=== PATIENT | female | born 1935 | race Caucasian/White ===

== ENCOUNTER → 2023-06-29 06:59 | Outpatient (REF) | payer MEDICARE, OTHER, SELFPAY ==
[2023-06-29 08:54] LABS: % Basophils 1.9 % (0-2); % Eosinophils 3.3 % (0-6); % Immature Granulocytes 0.2 % (0-0.5); % Lymphocytes 25.2 % (20.5-51.1); % Monocytes 10.8 % (1.7-9.3); % Neutrophils 58.6 % (42.2-75.2); Absolute Basophils 0.1 10^3/uL (0-0.2); Absolute Eosinophils 0.1 10^3/uL (0-0.7); Absolute Lymphocytes 1.1 10^3/uL (1.2-3.4); Absolute Monocytes 0.5 10^3/uL (0.1-0.6); Absolute Neutrophils 2.5 10^3/uL (1.4-6.5); Hematocrit 41.8 % (37.0-47.0); Mean Corp Hgb Conc. 33.5 g/dL (33.0-37.0); Mean Corpuscular Hgb 29.9 pg (27.0-31.0); Mean Corpuscular Volume 89.1 fL (81.0-99.0); Nucleated Red Blood Cells % 0 %; Platelet Count 262 10^3/uL (130-400); Red Blood Cell Count 4.69 10^6/uL (4.20-5.40); Red Cell Dist. Width 14.1 % (11.5-14.5); White Blood Cell Count 4.3 10^3/uL (4.8-10.8)
[2023-06-29 09:03] LABS: INR 2.17; PT 24.4 Sec (11.4-14.6)
[2023-06-29 09:32] LABS: ALT (SGPT) 15 U/L (0-35); AST (SGOT) 26 U/L (14-36); Albumin 4.1 g/dl (3.5-5.0); Alkaline Phosphatase 107 U/L (38-126); Blood Urea Nitrogen 15 mg/dl (7-17); Calcium 9.1 mg/dl (8.4-10.2); Carbon Dioxide 31 mmol/L (22-30); Chloride 102 mmol/L (98-107); Glucose 100 mg/dl (70-99); HDL Cholesterol 63 mg/dl; LDL Cholesterol, Calculated 157 mg/dl; Potassium 4.5 mmol/L (3.5-5.1); Sodium 135 mmol/L (135-145); Total Bilirubin 0.7 mg/dl (0.2-1.3); Total Cholesterol 248 mg/dl (50-199); Total Protein 6.9 g/dl (6.3-8.2); Triglyceride 140 mg/dl (10-149); Very Low Density Lipoprotein 28 mg/dl (0-30); eGFR > 60.00
== END ==
LOC: HWLAB 06:59
PROVIDERS: ATTENDING PHYSICIAN Internal Medicine Cardiovascular Disease; FAMILY PHYSICIAN Family Medicine; REFERRING PHYSICIAN Radiology Diagnostic Radiology
DX: E78.2 Mixed hyperlipidemia (principal); I10 Essential (primary) hypertension; I48.0 Paroxysmal atrial fibrillation; Z01.818 Encounter for other preprocedural examination
CPT/HCPCS: 36415; 71046; 80053; 80061; 85025; 85610

== ENCOUNTER 2023-07-21 13:01 | Emergency (ER) | payer MEDICARE, OTHER, SELFPAY ==
[2023-07-21 13:06] VITALS: BP 151/73
--- NOTE | 2023-07-21 13:46 | ED.GENMED ---
History of Present Illness
General
Chief Complaint: Breathing Problem
Source: patient
Exam Limitations: none
Time Seen by Provider: 07/21/23 13:40
Travel History
Have you had any contact with someone who has COVID-19?: No
Do you have any symptoms of coronavirus? Fever > 100 degrees, chills, cough, shortness of breath, sore throat, loss of taste or smell, muscle aches, or headache?: Yes
Symptoms:: cough
History of Present Illness
History of Present Illness:
See MDM
Past History
Past History
ED Past Medical History: Arrthythmia (Paroxysmal atrial fibrillation), Cancer (Uterine malignancy), CVA (Brainstem 2019), GERD, HTN, Hypercholesterolemia, Seizures, Other (Ischemic colitis, vaginal mass, diverticulitis, fibromyalgia, osteopenia,
migraine, orthostatic hypotension), Other (Left Flores's palsy, left meralgia paresthetica, prior osteomyelitis, sleep apnea) and Other (Anemia,)
ED Past Surgical History: Cardiac (Pacemaker placement), Cholecystectomy, Gynecological (Hysterectomy with total abdominal BSO) and Orthopedic (Right rotator cuff repair, right knee arthroscopy)
Social History
Tobacco: Non-smoker
Alcohol: None
Drug: None
Personal:
Living: with family
Employment: Retired
Family History
Family History: Other (Reviewed and non-contributory)
Phy Exam
Physical Exam
Physical Exam:
See MDM
Scores
Heart Failure Risk
Heart Failure Risk Score: Not Applicable
Course
Orders/Labs/Results
Orders:
Orders
07/21/23 13:46
Electrocardiogram (*1) Urgent
Reason for Study: Shortness of Breath
EKG- Treatment ONCE
07/21/23 13:57
Comprehensive Metabolic Panel Urgent
D-Dimer Urgent
07/21/23 13:58
Complete Blood Count/With Diff Urgent
NT-proBNP Urgent
Troponin I Urgent
07/21/23 15:24
CR Chest - 2 Views Urgent
Comment:
Reason For Exam: SOB, cough
07/21/23 16:50
Dexamethasone Sod Phosphate [Decadron] 10 mg IV NOW STA
07/21/23 16:55
Ipratropium/Albuterol Sulfate [Duoneb] 3 ml INH R NOW ONE
Abnormal Lab Results
07/21/23 07/21/23
13:57 13:58
Absolute Lymphs (auto) 1.0 L 10^3/uL
(1.2-3.4)
Absolute Monos (auto) 0.7 H 10^3/uL
(0.1-0.6)
Lymphocytes % 14.6 L %
(20.5-51.1)
Monocytes % 9.9 H %
(1.7-9.3)
Sodium 128 L mmol/L
(135-145)
BUN 19 H mg/dl
(7-17)
Glucose 123 H mg/dl
(70-99)
07/21/23 13:58
07/21/23 13:57
Vital Signs
Initial and Last Documented VS:
Initial Vital Signs
Temp Pulse Resp BP Pulse Ox
99.1 F 75 16 151/73 98
07/21/23 13:06 07/21/23 13:06 07/21/23 13:06 07/21/23 13:06 07/21/23 13:06
Last Documented Vital Signs
Temp Pulse Resp BP Pulse Ox
99.1 F 58 17 147/75 98
07/21/23 13:06 07/21/23 15:15 07/21/23 15:15 07/21/23 15:00 07/21/23 13:06
MDM/Problems Addressed
Differential Diagnosis Includes:
HPI and MDM Narrative:
88-year-old female presenting with shortness of breath and cough. She was diagnosed with bronchitis last week and started on antibiotics. She has 1 day left. Patient is concerned because symptoms are persisting. She complains of shortness of
breath with exertion and intermittent cough. Cough is nonproductive. Patient states the albuterol was helping early in the cough but it does not appear to be as effective.
Given her age and the pain, will obtain troponin and D-dimer. Will obtain EKG as well
Physical exam
General: Well appearing and non-toxic
HEENT: protecting airway
Neck: appears supple
CV: No evidence of cyanosis. Regular rate and rhythm
Resp: No accessory muscle use. Lungs clear
Abd: Non-distended
Extremities: No deformities. No leg edema
Neuro: alert
Psych: Normal affect
Skin: Intact
Problems Addressed including Acute and Chronic Conditions affecting care:
1. Shortness of breath
Acuity: acute
Prognosis: stable
Details: Will obtain cardiac testing EKG and D-dimer.
2. Headache
Acuity: acute
Prognosis: stable
Details: Appears to be related to cough. No focal deficits noted. Low yield for CT head
Updates
D-dimer and troponin negative. Chest x-ray clear. On reassessment, patient appears to have a bronchospastic cough. Will start steroids and discussed follow-up with PCP. We discussed her elevated blood pressure and discussed having this further
evaluated by primary care as well.
Prior to being discharged, patient felt symptomatic when she walked. After DuoNeb and Decadron, I did watch patient for a little while. Afterwards, patient feeling much better and ambulating without difficulty and states she feels comfortable
going home in the state
Differential Diagnosis (but not limited to): Pulmonary embolism, pneumonia, bronchitis, ACS
Testing considered: Chest x-ray but will obtain D-dimer first
Drug therapy (if applicable): OTC meds, please see d/c instruction regarding Rx drugs
Amount and/or Complexity of Data Reviewed
Clinical info obtained from: Patient
External data reviewed: N/A
Labs I independently reviewed (but not limited to): troponin and D-dimer negative
Radiology: X-ray independently reviewed: Chest x-ray clear
Pulse Ox: not hypoxic
EKG independently reviewed: Sinus rhythm, normal axis, no STEMI
Customer Management Specialist: N/A
Critical Care: N/A
Risk of Complication:
Social Determinants of health: Good social support
Discussed with other providers: N/A
Escalation of Care includes Admit/Obs: After being observed in the Emergency Department, pt stable for discharge.
Occasional wrong word or 'sound a like' substitutions may have occurred due to the inherent limitations of voice recognition software. Read the chart carefully and recognize, using context, where substitutions have occurred.
*Critical Care Note
Total Time (30-74mins, 75-104mins- exclusive of procedures): Not Applicable
ED Attending Note
-
Portions of this chart may have been created with voice recognition software.� Occasional wrong word or��sound alike� substitutions may have occurred due to the inherent limitations of voice recognition software.
Discharge Plan
Departure
Patient Disposition: Home (Routine Discharge)
Date of Disposition: 07/21/23
Time of Disposition: 16:52
Patient with high blood pressure during this ER visit?: Yes
Discharge Problem:
Acute bronchospasm, Benign essential HTN
Instructions: Acute Bronchitis, Adult (DC), BLOOD PRESSURE
Prescriptions:
New
albuterol sulfate [ProAir HFA] 90 mcg/actuation Hfa Aerosol Inhaler
1 puff INHALATION Q4HPRN PRN (Reason: shortness of breath) Qty: 8.5 0RF
methylprednisolone [Medrol (Don)] 4 mg tablets,dose pack
See Rx Instructions .ROUTE .COMPLEX Qty: 21 0RF
Rx Instructions:
orally per package directions
No Action
polyethylene glycol 3350 17 GRAMS powder in packet
8.5 g PO QPM
aspirin 81 MG tablet,delayed release (DR/EC)
81 mg PO Q48H
warfarin [Jantoven] 5 MG tablet
7.5 mg PO SUTUWETHSA
coenzyme Q10 [Co Q-10] 100 MG capsule
100 mg PO DAILY
Unisom (doxylamine) 25 MG tablet
25 mg PO HS
amlodipine 5 MG tablet
5 mg PO QPM Qty: 30 0RF
famotidine 20 mg Tablet
20 mg PO BID
cyanocobalamin (vitamin B-12) [Vitamin B-12] 500 mcg Tablet
500 mcg PO DAILY
warfarin 5 mg Tablet
5 mg PO MOFR
escitalopram oxalate 5 mg Tablet
2.5 mg PO QPM
gabapentin 100 mg capsule
100 mg PO HS
biotin 1,000 mcg Tablet,Chewable
1,000 mcg PO DAILY
Referrals:
Nicola Thompson DO [Family Provider] -
Activity Restrictions/Additional Instructions:
Please return for any worsening symptoms.
You may return at any time if you have further concerns.
Please follow up with your doctor at the first available appointment, preferably this week. Please discuss your symptoms and your elevated blood pressure.
Thank you for choosing [facility].
Interventions
Interventions:
*Risk Screen - Suicide Last Done: 07/21/23 13:06
*General Assessment Last Done: 07/21/23 13:06
*Neglect/Abuse Screening Last Done: 07/21/23 13:06
ED- Fall Risk Assessment Last Done: 07/21/23 14:14
ED- Cardiac Assessment Last Done: 07/21/23 14:14
ED- Pulmonary Assessment Last Done: 07/21/23 14:14
[2023-07-21 14:00] VITALS: BMI 25.0
[2023-07-21 14:07] LABS: % Immature Granulocytes 0.3 % (0-0.5); % Lymphocytes 14.6 % (20.5-51.1); % Monocytes 9.9 % (1.7-9.3); % Neutrophils 72.2 % (42.2-75.2); Absolute Basophils 0.1 10^3/uL (0-0.2); Absolute Eosinophils 0.1 10^3/uL (0-0.7); Absolute Monocytes 0.7 10^3/uL (0.1-0.6); Hematocrit 38.5 % (37.0-47.0); Hemoglobin 13.1 g/dL (12.0-16.0); Mean Corpuscular Hgb 29.2 pg (27.0-31.0); Mean Corpuscular Volume 85.9 fL (81.0-99.0); Mean Platelet Volume 9.3 fL (7.4-10.4); Nucleated Red Blood Cells % 0 %; Platelet Count 307 10^3/uL (130-400); Red Blood Cell Count 4.48 10^6/uL (4.20-5.40); Red Cell Dist. Width 13.6 % (11.5-14.5); White Blood Cell Count 6.9 10^3/uL (4.8-10.8)
[2023-07-21 14:21] VITALS: BP 157/145
[2023-07-21 14:35] LABS: NT-proBNP 334 pg/ml; Troponin I < 0.012 ng/ml
[2023-07-21 14:45] LABS: ALT (SGPT) 16 U/L (0-35); AST (SGOT) 27 U/L (14-36); Albumin 3.9 g/dl (3.5-5.0); Alkaline Phosphatase 117 U/L (38-126); Blood Urea Nitrogen 19 mg/dl (7-17); Calcium 8.7 mg/dl (8.4-10.2); Carbon Dioxide 29 mmol/L (22-30); Chloride 98 mmol/L (98-107); Estimated Creatinine Clearance 48 ml/min; Glucose 123 mg/dl (70-99); Potassium 4.4 mmol/L (3.5-5.1); Sodium 128 mmol/L (135-145); Total Bilirubin 0.5 mg/dl (0.2-1.3); Total Protein 6.7 g/dl (6.3-8.2); eGFR > 60.00
[2023-07-21 15:00] VITALS: BP 147/75
[2023-07-21 15:04] LABS: D-Dimer < 0.27 ug/mlFEU (0.00-0.50)
[2023-07-21 16:24] VITALS: BP 161/105
[2023-07-21] MEDS: DECADRON 10 MG IV (17:00)
[2023-07-21] MEDS: DUONEB 3 ML INH (17:01)
== END 2023-07-21 18:33 | disposition home or self-care (01) ==
LOC: EMR 13:01
PROVIDERS: EMERGENCY PHYSICIAN Student in an Organized Health Care Education/Training Program; FAMILY PHYSICIAN Family Medicine
DX: J98.01 Acute bronchospasm (principal); I10 Essential (primary) hypertension
CPT/HCPCS: 99285; 96374; 94640; 71046; 80053; 83880; 84484; 85025; 85379; 93005

== ENCOUNTER → 2023-08-02 12:03 | Outpatient (REF) | payer MEDICARE, OTHER, SELFPAY ==
[2023-08-02 15:39] LABS: INR 2.83; PT 29.7 Sec (11.4-14.6)
== END ==
LOC: HWLAB 12:03
PROVIDERS: ATTENDING PHYSICIAN Internal Medicine Cardiovascular Disease; FAMILY PHYSICIAN Family Medicine
DX: I48.0 Paroxysmal atrial fibrillation (principal)
CPT/HCPCS: 36415; 85610

== ENCOUNTER → 2023-08-18 09:19 | Outpatient (REF) | payer MEDICARE, OTHER, SELFPAY | LOC: HWRAD 09:19 | PROVIDERS: ATTENDING PHYSICIAN Family Medicine | DX: R06.00 Dyspnea, unspecified (principal) | CPT/HCPCS: 71250 ==

== ENCOUNTER → 2023-08-30 13:09 | Outpatient (REF) | payer MEDICARE, OTHER, SELFPAY ==
[2023-08-30 15:12] LABS: INR 2.25; PT 25.1 Sec (11.4-14.6)
== END ==
LOC: HWLAB 13:09
PROVIDERS: ATTENDING PHYSICIAN Internal Medicine Cardiovascular Disease; FAMILY PHYSICIAN Family Medicine
DX: I48.0 Paroxysmal atrial fibrillation (principal)
CPT/HCPCS: 36415; 85610

== ENCOUNTER → 2023-09-05 13:16 | Outpatient (REF) | payer MEDICARE, OTHER, SELFPAY | LOC: MRI 13:16 | PROVIDERS: ATTENDING PHYSICIAN Pain Medicine Interventional Pain Medicine; FAMILY PHYSICIAN Family Medicine | DX: M54.16 Radiculopathy, lumbar region (principal) | CPT/HCPCS: 72148 ==

== ENCOUNTER → 2023-09-27 10:37 | Outpatient (REF) | payer MEDICARE, OTHER, SELFPAY ==
[2023-09-27 12:45] LABS: INR 2.21; PT 24.4 Sec (11.4-14.6)
== END ==
LOC: HWLAB 10:37
PROVIDERS: ATTENDING PHYSICIAN Internal Medicine Cardiovascular Disease; FAMILY PHYSICIAN Family Medicine
DX: I48.0 Paroxysmal atrial fibrillation (principal)
CPT/HCPCS: 36415; 85610

== ENCOUNTER → 2023-10-05 11:07 | Outpatient (REF) | payer MEDICARE, OTHER, SELFPAY | LOC: HWRCS 11:07 | PROVIDERS: ATTENDING PHYSICIAN Nurse Practitioner Gerontology; FAMILY PHYSICIAN Family Medicine | DX: R06.02 Shortness of breath (principal); I34.0 Nonrheumatic mitral (valve) insufficiency | CPT/HCPCS: 93306 ==

== ENCOUNTER → 2023-11-04 10:20 | Outpatient (REF) | payer MEDICARE, OTHER, SELFPAY ==
[2023-11-04 12:15] LABS: INR 2.19; PT 24.2 Sec (11.4-14.6)
== END ==
LOC: HWLAB 10:20
PROVIDERS: ATTENDING PHYSICIAN Internal Medicine Cardiovascular Disease; FAMILY PHYSICIAN Family Medicine
DX: I48.0 Paroxysmal atrial fibrillation (principal)
CPT/HCPCS: 36415; 85610

== ENCOUNTER → 2023-12-06 09:06 | Outpatient (REF) | payer MEDICARE, OTHER, SELFPAY ==
[2023-12-06 11:53] LABS: INR 2.81; PT 29.5 Sec (11.4-14.6)
== END ==
LOC: HWLAB 09:06
PROVIDERS: ATTENDING PHYSICIAN Internal Medicine Cardiovascular Disease; FAMILY PHYSICIAN Family Medicine
DX: I48.0 Paroxysmal atrial fibrillation (principal)
CPT/HCPCS: 36415; 85610

== ENCOUNTER → 2024-01-10 07:51 | Outpatient (REF) | payer MEDICARE, OTHER, SELFPAY ==
[2024-01-10 09:00] LABS: % Basophils 1.8 % (0-2); % Eosinophils 2.6 % (0-6); % Immature Granulocytes 0.7 % (0-0.5); % Lymphocytes 20.8 % (20.5-51.1); % Monocytes 9.4 % (1.7-9.3); % Neutrophils 64.7 % (42.2-75.2); Absolute Basophils 0.1 10^3/uL (0-0.2); Absolute Eosinophils 0.1 10^3/uL (0-0.7); Absolute Monocytes 0.4 10^3/uL (0.1-0.6); Hematocrit 41.6 % (37.0-47.0); Hemoglobin 14.3 g/dL (12.0-16.0); Mean Corp Hgb Conc. 34.4 g/dL (33.0-37.0); Mean Corpuscular Hgb 30.1 pg (27.0-31.0); Mean Corpuscular Volume 87.6 fL (81.0-99.0); Mean Platelet Volume 9.8 fL (7.4-10.4); Nucleated Red Blood Cells % 0 %; Platelet Count 252 10^3/uL (130-400); Red Blood Cell Count 4.75 10^6/uL (4.20-5.40); Red Cell Dist. Width 13.9 % (11.5-14.5); White Blood Cell Count 4.6 10^3/uL (4.8-10.8)
[2024-01-10 09:15] LABS: INR 2.81; PT 29.5 Sec (11.4-14.6)
[2024-01-10 09:36] LABS: ALT (SGPT) 14 U/L (0-35); AST (SGOT) 27 U/L (14-36); Albumin 4.4 g/dl (3.5-5.0); Alkaline Phosphatase 103 U/L (38-126); Blood Urea Nitrogen 15 mg/dl (7-17); Calcium 9.6 mg/dl (8.4-10.2); Carbon Dioxide 29 mmol/L (22-30); Chloride 99 mmol/L (98-107); Glucose 97 mg/dl (70-99); HDL Cholesterol 61 mg/dl; LDL Cholesterol, Calculated 187 mg/dl; Potassium 4.6 mmol/L (3.5-5.1); Sodium 136 mmol/L (135-145); Total Bilirubin 0.6 mg/dl (0.2-1.3); Total Cholesterol 279 mg/dl (50-199); Triglyceride 156 mg/dl (10-149); Very Low Density Lipoprotein 31 mg/dl (0-30); eGFR > 60.00
[2024-01-10 10:04] LABS: TSH 2.16 uIU/ml (0.47-4.68)
== END ==
LOC: HWLAB 07:51
PROVIDERS: ATTENDING PHYSICIAN Internal Medicine Cardiovascular Disease; FAMILY PHYSICIAN Family Medicine; OTHER PHYSICIAN Psychiatry & Neurology Neurology; REFERRING PHYSICIAN Internal Medicine Clinical Cardiac Electrophysiology
DX: I48.0 Paroxysmal atrial fibrillation (principal); R91.1 Solitary pulmonary nodule; F33.0 Major depressive disorder, recurrent, mild; I49.5 Sick sinus syndrome; I47.10 Supraventricular tachycardia, unspecified; Z95.0 Presence of cardiac pacemaker; I69.30 Unspecified sequelae of cerebral infarction; I67.9 Cerebrovascular disease, unspecified; E78.2 Mixed hyperlipidemia; T46.6X5S Adverse effect of antihyperlipidemic and antiarteriosclerotic drugs, sequela; M79.10 Myalgia, unspecified site
CPT/HCPCS: 36415; 80053; 80061; 84443; 85025; 85610

== ENCOUNTER → 2024-02-08 11:33 | Outpatient (REF) | payer MEDICARE, OTHER, SELFPAY ==
[2024-02-08 16:17] LABS: INR 3.26; PT 33.7 Sec (11.4-14.6)
== END ==
LOC: HWLAB 11:33
PROVIDERS: ATTENDING PHYSICIAN Internal Medicine Cardiovascular Disease; FAMILY PHYSICIAN Family Medicine
DX: I48.0 Paroxysmal atrial fibrillation (principal)
CPT/HCPCS: 36415; 85610

== ENCOUNTER → 2024-02-15 11:29 | Outpatient (REF) | payer MEDICARE, OTHER, SELFPAY ==
[2024-02-15 16:20] LABS: INR 2.52; PT 27.5 Sec (11.4-14.6)
== END ==
LOC: HWLAB 11:29
PROVIDERS: ATTENDING PHYSICIAN Internal Medicine Cardiovascular Disease; FAMILY PHYSICIAN Family Medicine
DX: I48.0 Paroxysmal atrial fibrillation (principal)
CPT/HCPCS: 36415; 85610

== ENCOUNTER → 2024-04-17 10:55 | Outpatient (REF) | payer MEDICARE, OTHER, SELFPAY ==
[2024-04-17 12:55] LABS: INR 2.12; PT 23.9 Sec (11.4-14.6)
== END ==
LOC: HWLAB 10:55
PROVIDERS: ATTENDING PHYSICIAN Internal Medicine Cardiovascular Disease; FAMILY PHYSICIAN Family Medicine
DX: I48.0 Paroxysmal atrial fibrillation (principal)
CPT/HCPCS: 36415; 85610

== ENCOUNTER → 2024-05-18 10:56 | Outpatient (REF) | payer MEDICARE, OTHER, SELFPAY ==
[2024-05-18 15:50] LABS: INR 2.56; PT 27.9 Sec (11.4-14.6)
== END ==
LOC: HWLAB 10:56
PROVIDERS: ATTENDING PHYSICIAN Internal Medicine Cardiovascular Disease; FAMILY PHYSICIAN Family Medicine
DX: I48.0 Paroxysmal atrial fibrillation (principal)
CPT/HCPCS: 36415; 85610

== ENCOUNTER → 2024-06-20 11:03 | Outpatient (REF) | payer MEDICARE, OTHER, SELFPAY ==
[2024-06-20 16:28] LABS: PT 25.7 Sec (11.4-14.6)
== END ==
LOC: HWLAB 11:03
PROVIDERS: ATTENDING PHYSICIAN Internal Medicine Cardiovascular Disease; FAMILY PHYSICIAN Family Medicine
DX: I48.0 Paroxysmal atrial fibrillation (principal)
CPT/HCPCS: 36415; 85610

== ENCOUNTER → 2024-07-02 08:17 | Outpatient (REF) | payer MEDICARE, OTHER, SELFPAY ==
[2024-07-02 09:36] LABS: % Basophils 1.2 % (0-2); % Eosinophils 2.5 % (0-6); % Immature Granulocytes 0.2 % (0-0.5); % Lymphocytes 24.5 % (20.5-51.1); % Monocytes 10.8 % (1.7-9.3); % Neutrophils 60.8 % (42.2-75.2); Absolute Basophils 0.1 10^3/uL (0-0.2); Absolute Eosinophils 0.1 10^3/uL (0-0.7); Absolute Lymphocytes 1.2 10^3/uL (1.2-3.4); Absolute Monocytes 0.5 10^3/uL (0.1-0.6); Absolute Neutrophils 2.9 10^3/uL (1.4-6.5); Hemoglobin 14.2 g/dL (12.0-16.0); Mean Corpuscular Hgb 29.2 pg (27.0-31.0); Mean Corpuscular Volume 88.5 fL (81.0-99.0); Mean Platelet Volume 9.9 fL (7.4-10.4); Nucleated Red Blood Cells % 0 %; Platelet Count 257 10^3/uL (130-400); Red Blood Cell Count 4.86 10^6/uL (4.20-5.40); Red Cell Dist. Width 13.8 % (11.5-14.5); White Blood Cell Count 4.8 10^3/uL (4.8-10.8)
[2024-07-02 10:05] LABS: ALT (SGPT) 14 U/L (0-35); AST (SGOT) 28 U/L (14-36); Albumin 4.1 g/dl (3.5-5.0); Alkaline Phosphatase 98 U/L (38-126); Blood Urea Nitrogen 20 mg/dl (7-17); Calcium 9.4 mg/dl (8.4-10.2); Carbon Dioxide 32 mmol/L (22-30); Chloride 98 mmol/L (98-107); Glucose 99 mg/dl (70-99); HDL Cholesterol 61 mg/dl; LDL Cholesterol, Calculated 154 mg/dl; Potassium 4.7 mmol/L (3.5-5.1); Sodium 135 mmol/L (135-145); Total Bilirubin 0.7 mg/dl (0.2-1.3); Total Cholesterol 244 mg/dl (50-199); Total Protein 7.2 g/dl (6.3-8.2); Triglyceride 147 mg/dl (10-149); Very Low Density Lipoprotein 29 mg/dl (0-30); eGFR 54.53
[2024-07-02 10:42] LABS: TSH 2.42 uIU/ml (0.47-4.68)
== END ==
LOC: HWLAB 08:17
PROVIDERS: ATTENDING PHYSICIAN Family Medicine; OTHER PHYSICIAN Internal Medicine; REFERRING PHYSICIAN Internal Medicine Cardiovascular Disease
DX: I48.0 Paroxysmal atrial fibrillation (principal); F33.0 Major depressive disorder, recurrent, mild; Z95.0 Presence of cardiac pacemaker; I49.5 Sick sinus syndrome; I69.30 Unspecified sequelae of cerebral infarction; E78.2 Mixed hyperlipidemia; I10 Essential (primary) hypertension; I70.0 Atherosclerosis of aorta; G93.5 Compression of brain; Z79.01 Long term (current) use of anticoagulants; T46.6X5S Adverse effect of antihyperlipidemic and antiarteriosclerotic drugs, sequela; M79.10 Myalgia, unspecified site
CPT/HCPCS: 36415; 80053; 80061; 84443; 85025

== ENCOUNTER → 2024-07-05 11:55 | Outpatient (REF) | payer MEDICARE, OTHER, SELFPAY ==
[2024-07-05 17:51] LABS: Iron 91 ug/dl (37-170); Magnesium 2.1 mg/dl (1.6-2.3)
[2024-07-05 18:01] LABS: Percent Saturation 28 % (20-50); Total Iron Binding Capacity 323 ug/dl (265-497)
[2024-07-05 19:08] LABS: Folate > 20.0 ng/ml (2.76-20); Vitamin B12 399 pg/ml (239-931)
== END ==
LOC: CLAB 11:55
PROVIDERS: ATTENDING PHYSICIAN Family Medicine
DX: R42 Dizziness and giddiness (principal); R06.00 Dyspnea, unspecified; R25.2 Cramp and spasm; D64.9 Anemia, unspecified; R26.81 Unsteadiness on feet
CPT/HCPCS: 36415; 82607; 82728; 82746; 83540; 83550; 83735

== ENCOUNTER → 2024-07-25 10:19 | Outpatient (REF) | payer MEDICARE, OTHER, SELFPAY ==
[2024-07-25 13:16] LABS: INR 1.99; PT 23.1 Sec (11.4-14.6)
== END ==
LOC: HWLAB 10:19
PROVIDERS: ATTENDING PHYSICIAN Internal Medicine Cardiovascular Disease; FAMILY PHYSICIAN Family Medicine
DX: I48.0 Paroxysmal atrial fibrillation (principal)
CPT/HCPCS: 36415; 85610

== ENCOUNTER 2024-08-03 02:51 | Observation (INO) | payer MEDICARE, OTHER, SELFPAY ==
[2024-08-02 18:50] VITALS: BP 151/72
[2024-08-02 19:14] LABS: % Basophils 1.2 % (0-2); % Eosinophils 1.2 % (0-6); % Immature Granulocytes 0.5 % (0-0.5); % Lymphocytes 13.6 % (20.5-51.1); % Monocytes 8.5 % (1.7-9.3); Absolute Basophils 0.1 10^3/uL (0-0.2); Absolute Eosinophils 0.1 10^3/uL (0-0.7); Absolute Monocytes 0.7 10^3/uL (0.1-0.6); Absolute Neutrophils 5.8 10^3/uL (1.4-6.5); Hematocrit 41.4 % (37.0-47.0); Mean Corp Hgb Conc. 33.8 g/dL (33.0-37.0); Mean Corpuscular Hgb 29.9 pg (27.0-31.0); Mean Corpuscular Volume 88.5 fL (81.0-99.0); Mean Platelet Volume 9.2 fL (7.4-10.4); Nucleated Red Blood Cells % 0 %; Platelet Count 294 10^3/uL (130-400); Red Blood Cell Count 4.68 10^6/uL (4.20-5.40); Red Cell Dist. Width 14.3 % (11.5-14.5); White Blood Cell Count 7.7 10^3/uL (4.8-10.8)
[2024-08-02 19:34] LABS: ALT (SGPT) 15 U/L (0-35); AST (SGOT) 23 U/L (14-36); Albumin 4.8 g/dl (3.5-5.0); Alkaline Phosphatase 105 U/L (38-126); Blood Urea Nitrogen 20 mg/dl (7-17); Calcium 9.4 mg/dl (8.4-10.2); Carbon Dioxide 26 mmol/L (22-30); Chloride 95 mmol/L (98-107); Glucose 114 mg/dl (70-99); Potassium 4.6 mmol/L (3.5-5.1); Sodium 130 mmol/L (135-145); Total Bilirubin 0.9 mg/dl (0.2-1.3); Total Protein 7.4 g/dl (6.3-8.2); eGFR > 60.00
[2024-08-02 23:11] VITALS: BMI 23.6
[2024-08-02 23:14] VITALS: BP 160/74
[2024-08-02 23:29] LABS: COVID-19 Antigen Negative (Negative)
--- NOTE | 2024-08-02 23:48 | ED.GENMED ---
History of Present Illness
General
Chief Complaint: Numbness
Source: patient
Exam Limitations: none
Time Seen by Provider: 08/02/24 23:15
Nursing documentation reviewed up to this point in time: agreed with
History of Present Illness
History of Present Illness:
This is a pleasant 89-year-old female that presents with perioral numbness that began this AM. She states that the numbness has improved and is now on the left side of her face only. She has a history of 5 brain stem strokes, and states that this
feel similar. Patient denies fever, chills, nausea or vomiting. She denies headache. She states that this left-sided numbness is reminiscent of previous stroke. Patient denies any head trauma or falls. Patient is maintained on Coumadin but
states that her INRs have been running low. patient lives alone
Past History
Past History
ED Past Medical History: Arrthythmia (Paroxysmal atrial fibrillation), Cancer (Uterine malignancy), CVA (Brainstem 2019), GERD, HTN, Hypercholesterolemia, Seizures, Other (Ischemic colitis, vaginal mass, diverticulitis, fibromyalgia, osteopenia,
migraine, orthostatic hypotension), Other (Left Flores's palsy, left meralgia paresthetica, prior osteomyelitis, sleep apnea) and Other (Anemia,)
ED Past Surgical History: Cardiac (Pacemaker placement), Cholecystectomy, Gynecological (Hysterectomy with total abdominal BSO) and Orthopedic (Right rotator cuff repair, right knee arthroscopy)
Social History
Tobacco: Non-smoker
Alcohol: None
Drug: None
Personal:
Living: with family
Employment: Retired
Family History
Family History: Other (Reviewed and non-contributory)
Phy Exam
Physical Exam
Physical Exam:
Physical Exam
Vital signs and allergy list reviewed and agreed with.
GENERAL: Alert , in no apparent distress
EYE: pupils equal, EOMI, anicteric
NECK: Supple, no significant adenopathy. No masses. Trachea midline
ENT: Oropharynx is clear, mmm.
CARDIAC: Regular rate and rhythm . No M/R/G
LUNGS: Clear breath sounds bilaterally, no acute respiratory distress, no wheezes/rales/rhonchi
ABDOMEN: Soft, without focal tenderness, no r/g, no cvat. Normal BSx4q
NEUROLOGICAL: Alert and oriented, no focal neuro deficits
SKIN: Warm and dry, skin intact. Some paresthesia of the left side of the cheek and a V2 distribution
MUSCULOSKELETAL: No edema, well perfused. Moves all 4 extremities
PSYCH: Normal and appropriate interaction.
Scores
NIH Stroke Score
Level of Consciousness: 0 - Alert
LOC Questions: 0-Answers both correctly
LOC Commands: 0-Performs both correctly
Best Horizontal Gaze: 0-Normal
Visual Renteria: 0=Normal, no visual loss
Facial Palsy: 0=Normal, symmetrical
Motor - Right Arm: 0=No drift 10 seconds
Motor - Left Arm: 0=No drift 10 seconds
Motor - Right Le-No drift 5 seconds
Motor - Left Le-No drift 5 seconds
Limb Ataxia: 0-Absent
Sensation: 1-Mild loss
Best Language: 0-No aphasia
Dysarthria: 0-Normal
Extinction and Inattention: 0-No abnormality
Total Score:: 1
Thrombolytic Contraindication
Inclusion and Exclusion criteria reviewed: Yes
Reasons for NON-Tx with Thrombolytics ABSOLUTE Exclusions: Greater than 4.5 hrs from onset of sxs (Symptoms for at least 16 hours, if not longer)
Course
Orders/Labs/Results
Orders:
Orders
08/02/24 18:[address] [CT Head W/o Iv Contrast] Urgent
Comment:
Reason For Exam: facial numbness hx strokes
08/02/24 19:05
CMP [Comprehensive Metabolic Panel] Urgent
COVID-19 Antigen Urgent
Source: Nasal Swab
Complete Blood Count/With Diff Urgent
Influenza A+B Rapid Molecular Urgent
HEDY Source: Nasal Swab
Specimen Description:
08/02/24 23:59
Prothrombin Time Urgent
08/03/24 02:08
Warfarin [Coumadin] 7.5 mg PO NOW STA
08/03/24 02:14
Aspirin Chewable [Low Strength Aspirin] 162 mg PO NOW STA
08/03/24 02:15
Admit/Transfer Patient As Directed
Co-Sign Provider:
Level of Care: Observation services
Assign to:: Telemetry
Physician / Group: hospitalist
Diagnosis: TIA
Reason for Telemetry: CVA/TIA
Date to Stop Telemetry: 08/06/24
Time to Stop Telemetry: 11:00
PRN Pain Medication Management As Directed
May give lesser potent ordered pain med per pt: Yes
preference::
Protocol:: Medication orders for pain may be administered in a
manner that supports deferring to patient preference
when the pt is:
- Requesting an ordered lesser potent pain medication.
Least to most potent pain medications are defined
as: acetaminophen < NSAID < tramadol < opioids
(morphine, oxycodone, hydromorphone).
- Requesting a lesser dose of the same medication IF
ORDERED.
- Requesting a less intrusive route of administration
if both routes are prescribed by the provider (PO <
IV).
08/03/24 02:18
Code Status As Directed
Resuscitation Status: Full Code
08/03/24 03:00
Flush (0.9% Sodium Chloride) [Flush (Nss)] See Dose Instructions IV PER PROTOCOL
08/03/24 03:14
Acetaminophen [Tylenol/Feverall] 650 mg RECTAL Q4HPRN PRN
Acetaminophen [Tylenol] 650 mg PO Q4HPRN PRN
Albuterol [ProAIR HFA INHALER] 1 puff INH R Q4HPRN PRN
08/03/24 03:14
Case Management Consult ONCE
Case Management Consult: Discharge Planning
Comment: stroke/tia
DIETARY CONSULT Routine
Reason for Consult: stroke/TIA
NEUROLOGY CONSULT Urgent
Consulting Provider: Poli Singh
Was physician already notified: Yes
Baked Goods Stock Clerk Urgent
MR Brain Without Contrast Routine
Comment:
Reason For Exam: stroke/TIA
Recent pill cam endoscopy?: No
Pacemaker/Defibrillator?: Yes
Is the pacemaker a conditional type?: Yes
Activity As Directed
Activity Level: With Assistance
NIH Stroke Scale As Directed
Directions: Per protocol
Comment: every shift and with any change in condition or mental status
Neurological Checks As Directed
Frequency: q4h
Additional Instructions:: q4h x 24h upon admission to the floor, then qshift & with any change in condition
and mental status
Patient Education As Directed
Type: Stroke education packet
Comment: provide to patient and family
Pneumatic Compression Sleeves As Directed
Type: Knee high
Vital Signs As Directed
Frequency: Per unit guidelines
Ot Eval And Treat Routine
Pt Eval And Treat Routine
Activity Level: With Assistance
Speech Therapy Eval & Treat Routine
DX Deep Vein Thrombosis Video Routine
08/03/24 Breakfast
Cholesterol Lowering
At Your Request: Limited Participation
08/03/24 06:36
Cardiovascular Evaluation IN AM
Complete Blood Count/No Diff IN AM
Prothrombin Time IN AM
08/03/24 08:00
Famotidine [Pepcid] 20 mg PO DAILY
08/03/24 18:00
Amlodipine [Norvasc] 5 mg PO QPM
Escitalopram Oxalate [Lexapro] 2.5 mg PO QPM
Polyethylene Glycol Powder [Miralax] 8.5 grams PO QPM
Warfarin [Coumadin] 5 mg PO MOFR
08/03/24 22:00
Gabapentin [Neurontin] 100 mg PO HS
doxylamine succinate [Unisom (doxylamine)] See Dose Instructions PO HS
08/04/24 08:00
Aspirin Low Dose EC [Aspir Low (Enteric Coated)] 81 mg PO Q48H
08/04/24 18:00
Warfarin [Coumadin] 7.5 mg PO SUTUWETHSA
08/06/24 11:00
DC Protocol for Telemetry ONCE
Abnormal Lab Results
08/02/24 08/02/24
19:05 23:59
Absolute Lymphs (auto) 1.0 L 10^3/uL
(1.2-3.4)
Absolute Monos (auto) 0.7 H 10^3/uL
(0.1-0.6)
Lymphocytes % 13.6 L %
(20.5-51.1)
PT 20.2 H Sec
(11.4-14.6)
Sodium 130 L mmol/L
(135-145)
Chloride 95 L mmol/L
(98-107)
BUN 20 H mg/dl
(7-17)
Glucose 114 H mg/dl
(70-99)
08/02/24 19:05
08/02/24 19:05
Vital Signs
Initial and Last Documented VS:
Initial Vital Signs
Temp Pulse Resp BP Pulse Ox
97.8 F 70 18 151/72 95
08/02/24 18:50 08/02/24 18:50 08/02/24 18:50 08/02/24 18:50 08/02/24 18:50
Last Documented Vital Signs
Temp Pulse Resp BP Pulse Ox
99.0 F 69 15 133/69 95
08/02/24 23:14 08/03/24 06:45 08/02/24 23:14 08/03/24 06:00 08/03/24 06:45
*Pulse Oximetry
Patient hypoxic: no
*EKG
Interpreted by ED Provider?: NA
*Critical Care Note
Total Time (30-74mins, 75-104mins- exclusive of procedures): Not Applicable
Update Note
Update Note:
Nazlini texted neurology with CT scan results
Awaiting coags-INR is 1.68
Given that patient is stating that her symptoms are similar to previous brainstem strokes, patient to be brought in for continued observation and testing.
Hospitalist aware and agrees to admit patient to the hospitalist service.,
ED Attending Note
-
Portions of this chart may have been created with voice recognition software.� Occasional wrong word or��sound alike� substitutions may have occurred due to the inherent limitations of voice recognition software.
Discharge Plan
Departure
Patient Disposition: Admit
Date of Disposition: 08/03/24
Time of Disposition: 01:22
Presentation/result/management discussed w/ accepting MD/DO: Hospitalist
Condition: Fair
Discharge Problem:
Paresthesias, History of ischemic vertebrobasilar artery brainstem stroke
Interventions
Interventions:
*Risk Screen - Suicide Last Done: 08/02/24 18:50
*General Assessment Last Done: 08/02/24 23:16
*Neglect/Abuse Screening Last Done: 08/02/24 23:16
*ED- Fall Risk Assessment Last Done: 08/02/24 23:15
*ED COVID-19 Vaccine History Last Done: 08/02/24 23:15
ED- Neurological Assessment Last Done: 08/02/24 23:17
[2024-08-03] VITALS (13 sets, daily range): BP systolic 123–170; BP diastolic 50–108
[2024-08-03 00:23] LABS: INR 1.67; PT 20.2 Sec (11.4-14.6)
--- NOTE | 2024-08-03 02:04 | HPS.HSE ---
Family Physician
-
Family Physician: Nicola Thompson
Chief Complaint
-
Facial paresthesias
History of Present Illness
Patient is a 89-year-old with past medical history of brainstem CVA, TIA, proximal atrial fibrillation on anticoagulation with Coumadin, hypertension and hyperlipidemia who presents to the emergency department with approximately 12 hours of facial
paresthesias.
Patient reports she was in usual state of health when she suddenly felt numbness around her lips and itching bilaterally. Then the numbness appeared to move today left facial area including the cheeks and the lower chin. It also involves some of
the neck. Over time in the region affected as dwindled down to just do left cheek and jaw. She denies any new facial asymmetry (she reports having a chronic mild left-sided facial asymmetry). She denies any dysarthria or dysphagia. She denies
any weakness or numbness in lower extremities. She denies any recent palpitations. She denies feeling dizzy or lightheaded. She denies any headache. She reports taking aspirin every other day as prescribed. She is also on Coumadin which she
reports taking as prescribed. She reports about a 1 week history of intermittent night sweats without fever and a nonproductive cough.
On arrival in the emergency department she was afebrile and hemodynamically stable with a BP of 167/75, pulse of 84 and satting 97% on room air. CBC was unremarkable. Electrolytes were notable for sodium of 130 but otherwise unremarkable with
normal BUN and creatinine. CT of the head shows no acute abnormalities.
Medical History
Past Medical History
Past Medical History: Reports Other (see below)
Additional Past Medical History:
CVA, GERD, HTN, Hypercholesterolemia, Seizures and Other (Ischemic colitis, vaginal mass, diverticulitis)
Past Surgical History: Reports Other (see below)
Additional Past Surgical History:
Cardiac, Cholecystectomy and Gynecological
Social History
Tobacco: Non-smoker
Alcohol: None
Drug: None
Personal:
Living: With Family
Employment: Retired
Family History
Family History: Not pertinent
Allergies / Home Medications
Allergies reflects when Allergies were last updated in [employer].
Home Medications with original date entered in [employer]
Allergy/Medication List:
Allergies
Allergy/AdvReac Type Severity Reaction Status Date / Time
cyclobenzaprine Allergy muscle Verified 08/03/24 00:59
aches
cyclobenzaprine HCl Allergy muscle Verified 08/03/24 00:59
[From Flexeril] aches
dextromethorphan Allergy SEIZURE Verified 08/03/24 00:59
dextromethorphan HBr Allergy SEIZURES Verified 08/03/24 00:59
[From NyQuil]
doxylamine [From NyQuil] Allergy SEIZURES Verified 08/03/24 00:59
guaifenesin Allergy Unknown Verified 08/03/24 00:59
monosodium glutamate Allergy Unknown Verified 08/03/24 00:59
morphine [Morphine] Allergy vomiting Verified 08/03/24 00:59
prochlorperazine Allergy hallucinati Verified 08/03/24 00:59
[From Compazine] ons
pseudoephedrine HCl Allergy SEIZURES Verified 08/03/24 00:59
[From NyQuil]
Enbdpex-NMG-CvT Reductase Allergy muscle Verified 08/03/24 00:59
Inhibitor aches
[Qgrifmd-Zhu-Fzt Reductase
Inhibitor]
Home Medications
polyethylene glycol 3350 17 gram oral powder packet 8.5 g PO QPM 06/11/15
aspirin 81 mg tablet,delayed release 81 mg PO Q48H 08/01/17
warfarin 5 mg tablet (Jantoven) 7.5 mg PO SUTUWETHSA 08/01/17
coenzyme Q10 100 mg capsule (Co Q-10) 100 mg PO DAILY 07/04/18
doxylamine succinate 25 mg tablet (Unisom (doxylamine)) 25 mg PO HS 07/04/18
amlodipine 5 mg tablet 5 mg PO QPM ##30 07/06/18
escitalopram oxalate 5 mg tablet 2.5 mg PO QPM 03/05/22
famotidine 20 mg tablet 20 mg PO BID 03/05/22
warfarin 5 mg tablet 5 mg PO MOFR 03/05/22
albuterol sulfate 90 mcg/actuation aerosol inhaler (ProAir HFA) 1 puff inhalation Q4HPRN PRN shortness of breath #8.5 grams 07/21/23
gabapentin 100 mg capsule 100 mg PO HS 07/21/23
Review of Systems
-
History Source: Patient
Constitutional: Reports Night Sweats; Denies Fever or Chills
EENT: Reports No Symptoms
Respiratory: Reports Cough; Denies Trouble Breathing
Cardiac: Reports No Symptoms
Abdomen/GI: Reports No Symptoms
: Denies Dysuria or Flank Pain
Musculoskeletal: Reports No Symptoms
Skin: Reports No Symptoms
Neurological: Reports No Symptoms
Endocrine: Reports No Symptoms
Hematologic/Lymphatic: Reports No Symptoms
Psych: Reports No Symptoms
Physical Exam
Vital Signs
Vital Signs
Temp Pulse Resp BP Pulse Ox
99.0 F 64 15 167/73 97
08/02/24 23:14 08/03/24 01:00 08/02/24 23:14 08/03/24 01:00 08/03/24 01:00
Physical Exam
General: Well Developed, Well Nourished, No Apparent Distress and Comfortable
HEENT: NormoCephalic, Anicteric, Moist mucous membranes and Atraumatic
Respiratory: Clear
Cardiac: S1/S2 and Regular Rhythm
Breast: Deferred by me
GI: Soft, Non Tender, Non Distended and Normal Bowel Sounds
Rectal: Deferred by Provider
Genito-urinary: No costovertebral tender
Musculoskeletal: No Clubbing, No Cyanosis and No Edema
Skin: Warm
Neuro: AO x 3, No Motor Deficits, Cranial Nerves Intact and Other (slight decrease in light touch sensation over the V3 region on the left face. Preserved hot/cold and pin-prick.)
Hematologic/Lymphatic: No Lymphadenopathy
Psych: Calm
Laboratory Results
-
08/02/24 19:05
08/02/24 19:05
Laboratory Results
PT 20.2 Sec (11.4-14.6) H 08/02/24 23:59
INR 1.67 08/02/24 23:59
Total Bilirubin 0.9 mg/dl (0.2-1.3) 08/02/24 19:05
AST 23 U/L (14-36) 08/02/24 19:05
ALT 15 U/L (0-35) 08/02/24 19:05
Alkaline Phosphatase 105 U/L (38-126) 08/02/24 19:05
Data Reviewed
-
CT Scan: Report Reviewed by me
Lab Data: Labs Reviewed by me
Old Records: Reviewed
Impression/Plan
-
IMPRESSION:
89 y.o with history of CVA and TIA, pAFIB on AC, HTN presents with 12 hours of left facial numbness that has improved since onset. Initial onset was a genesis-oral numbness that then appeared to move to the left facial region. She says reminiscent of
her last brain stem stroke. CT head is negative. She still has symptoms with NIHSS = 1.
PLAN:
CVA/TIA - Patient with multiple TIAs and CVA. NIHSS = 1. Subtherapeutic INR.
- admit to telemetry observation
- continue QOD aspirin and AC, will give aspirin 81 now
- neurochecks q 6
- passed swallowing eval so allow oral medications and po for now
- mri in am (ok with ppm)
- pt/ot
- neurology consult
AFIB
- conutinue coumadin
- sick sinus s/p ppm, no rate control agent
DVT PPX - on coumadin, scds
Code status - Full Code, previously DNR and listed as DNR on POA but changed mind to full currently.
[2024-08-03] MEDS: COUMADIN 7.5 MG PO (03:36)
[2024-08-03] MEDS: LOW STRENGTH ASPIRIN 162 MG PO (03:37)
[2024-08-03 06:46] LABS: Hematocrit 36.4 % (37.0-47.0); Hemoglobin 12.8 g/dL (12.0-16.0); Mean Corp Hgb Conc. 35.2 g/dL (33.0-37.0); Mean Corpuscular Hgb 30.4 pg (27.0-31.0); Mean Corpuscular Volume 86.5 fL (81.0-99.0); Mean Platelet Volume 9.4 fL (7.4-10.4); Platelet Count 241 10^3/uL (130-400); Red Blood Cell Count 4.21 10^6/uL (4.20-5.40); Red Cell Dist. Width 13.9 % (11.5-14.5); White Blood Cell Count 6.6 10^3/uL (4.8-10.8)
[2024-08-03 07:04] LABS: INR 1.66; PT 20.1 Sec (11.4-14.6)
[2024-08-03 07:14] LABS: HDL Cholesterol 48 mg/dl; LDL Cholesterol, Calculated 118 mg/dl; Total Cholesterol 178 mg/dl (50-199); Triglyceride 61 mg/dl (10-149); Very Low Density Lipoprotein 12 mg/dl (0-30)
[2024-08-03] MEDS: PEPCID 20 MG PO (07:24)
[2024-08-03] MEDS: TYLENOL 650 MG PO (09:54)
--- NOTE | 2024-08-03 10:36 | PTOTSP ---
SPEECH THERAPY SWALLOW AND SPEECH/LANGUAGE/COGNITIVE COMMUNICATION EVALUATION:
Patient exhibits grossly functional oropharyngeal swallow at this time. Patient with history of VSE x2 most recently 02/24/2023 which indicated grossly functional oropharyngeal swallow at that time, along with recommendation for GI consult given
concern for possible esophageal dysphagia given contrast retention and incomplete esophageal clearance during esophageal sweep. Patient reporting current swallow function appears to be unchanged from baseline. Patient remains at risk for aspiration
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 Recommend continue Regular texture solids, thin liquids. Medications whole with liquid as best tolerated. General aspiration and Reflux precautions. ST to
follow, assess diet tolerance and modify as appropriate, determine indication for repeat instrumental assessment of swallowing as appropriate, and provide continued education regarding aspiration precautions.
Patient exhibits mild cognitive communication impairments characterized by deficits in STM, higher level executive functioning skills, Attention, and Abstraction. MOCA version 8.1 was administered. Patient achieved a score of 24/30, indicating
slightly below normal level (greater than or equal to 26/30). Subscores as follows: Visuospatial/Executive functionin/5. Namin/3. Attention: 5/6. Language: 2/3. Abstraction: 1/2. Delayed Recall: /5. Orientation: 6/6. Patient reported
cognitive communication skills appear near baseline level at this time. MRI pending at this time. Will follow for ST services pending MRI results.
RECOMMEND:
1) Regular texture solids, thin liquids
2) Medications whole with liquid as best tolerated
3) General aspiration and Reflux precautions: Upright positioning; Small sips/bites; Slow rate; Chew thoroughly; Alternate liquids/solids; Remain upright 30 minutes after eating/drinking
4) Oral care 3x/day and increased mobility as able/tolerated to reduce risk for nosocomial infection
5) ST to follow for swallow therapy to assess diet tolerance and determine indication for VSE as appropriate
6) ST to follow for cognitive communication therapy pending MRI results
[2024-08-03 11:04] LABS: Blood Urea Nitrogen 12 mg/dl (7-17); Calcium 9.2 mg/dl (8.4-10.2); Carbon Dioxide 27 mmol/L (22-30); Chloride 96 mmol/L (98-107); Estimated Creatinine Clearance 55 ml/min; Glucose 168 mg/dl (70-99); Sodium 130 mmol/L (135-145); eGFR > 60.00
--- NOTE | 2024-08-03 11:23 | W.PN.UPDATE ---
Update Note
Progress Note Update
Non-billable addendum
admitted 2 AM for concern of TIA/CVA given symptoms of facial paraesthesias x 12 hours
Assessment:
CVA vs TIA
- hx of multiple TIA and CVA (brainstem 2019)
- CT head: 1. SEVERE WHITE MATTER LEUKOARAIOSIS in the frontal and parietal lobes.
- MRI brain pending
- continue ASA
- continue Coumadin - noted subtherapeutic - consider uptitration pending MRI result
- neuro-checks
- PT/OT/ST
- Neuro consulted
Parox A. Fib
- continue Toprol XL
- continue Coumadin - noted subtherapeutic - consider uptitration pending MRI result
GERD
- H2 dontae
Essential HTN
- continue Norvasc 5mg
HLD
[place]
Hx of uterine cancer
DVT ppx: Coumadin
Code: Full
--- NOTE | 2024-08-03 15:14 | W.DS.TRANS ---
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
-
Discharge Instructions:
Discharge Diagnosis/Procedures TIA vs infrequent mild partial seizure, sub
therapeutic INR
Diet Low Cholesterol
Activity As tolerated
Blood Work call Cardiology office on Tuesday for INR check
Instructions:
Stand-Alone Forms:
Changes to Home Medications: No
Discharge Medications:
DC Medications w/original date entered in [facility]
polyethylene glycol 3350 17 gram oral powder packet 8.5 g PO QPM 06/11/15
aspirin 81 mg tablet,delayed release 81 mg PO Q48H 08/01/17
coenzyme Q10 100 mg capsule (Co Q-10) 100 mg PO DAILY 07/04/18
doxylamine succinate 25 mg tablet (Unisom (doxylamine)) 25 mg PO HS 07/04/18
amlodipine 5 mg tablet 5 mg PO QPM ##30 07/06/18
escitalopram oxalate 5 mg tablet 5 mg PO QPM 03/05/22
famotidine 20 mg tablet 20 mg PO BID 03/05/22
gabapentin 100 mg capsule 100 mg PO HS 07/21/23
acetaminophen 325 mg tablet (Tylenol) 650 mg PO Q6HPRN PRN mild pain 08/03/24
albuterol sulfate 90 mcg/actuation aerosol inhaler 2 puff inhalation R Q6HPRN PRN sob 08/03/24
guar gum 0.5 tbsp PO QPM 08/03/24
metoprolol succinate 50 mg tablet,extended release 24 hr (Toprol XL) 50 mg PO QPM 08/03/24
uuuxkckp-ougsjpwa-gexf 8 mg-folic ac 400 mcg-vit K 10 mcg chew tablet (Centrum Chewables) 1 tab PO DAILY 08/03/24
warfarin 5 mg tablet (Jantoven) 7.5 mg (1.5 x 5 mg) PO DAILY #45 tabs 08/03/24
Home Medication Changes
Pending Results: No
Total time spent discharging patient (in min): 41
--- NOTE | 2024-08-03 15:29 | CM ---
CM reviewed medical records. CM met with patient. Patient is medically cleared for discharge to home. Patient is otherwise independent with needs. CM offered home care and patient is agreeable.
PLAN: home with VN
--- NOTE | 2024-08-03 19:45 | EEG.RPT ---
Electroencephalogram Report
Recording
Date of EE08/03/24
Type of EEG: Routine
Length of EEG recordin mins
Done with Video Recording: Yes
Patient Status: Inpatient
Recording Conditions: Awake
Hyperventilation Performed: No
Photic Stimulation Performed: Yes
Report
Clinical Background:�simple partial seizure
Introduction: A routine bedside EEG was done using International 10-20 electrode placement protocol.
Background: In the most alert state, the PDR is 10 Hz in frequency with normal amplitude. There is spontaneous variability and reactivity.�
Sleep: No sleep is seen.�
Focal/epileptiform: There were no focal or epileptiform discharges. No clinical or electrographic seizures occurred during this recording.
Photic stimulation: resulted in normal driving response. There was no photo myogenic or photoparoxysmal response.�
Impression: Normal EEG
--- NOTE | 2024-08-03 19:48 | CON.NEURO ---
Neuro Assessment/Plan
Assessment
simple partial seizure.
this pattern, of essentially the same event every 1-2 years for 10 years is not consistent with TIA
EEG was normal
MRI couldn't be done, the medtronic tech attempted but was unable to turn off her pacemaker
Plan
patient comfortable to go home with no rx
I advised her my suspected diagnosis of simple partial seizure, this is probably not the last time that she has this event, the more times it happens this way the less concerned that I am;
the next time that this occur I advise no further workup
Consultation
Order
Date of Consultation: 08/03/24
Requesting Provider: Yousuf Valerio
Reason for Consult: TIA
Subjective/Objective
Subjective Data
Date of Service: August 03, 2024
She is an 89 year old woman presenting with facial numbness. began lower lip, spread to whole face, and now on the left side of her face.
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
advanced and progressing
this event continues to happen every 1-2 years. on some of the prior episodes, the tingling spread down her left arm.
Objective Data
Vital Signs
Temp Pulse Resp BP Pulse Ox
37.2 C 90 15 137/108 96
08/02/24 23:14 08/03/24 15:41 08/02/24 23:14 08/03/24 15:41 08/03/24 15:41
Lab Results
08/03/24 06:36
08/03/24 10:35
PT 20.1 Sec (11.4-14.6) H 08/03/24 06:36
INR 1.66 08/03/24 06:36
Sodium 130 mmol/L (135-145) L 08/03/24 10:35
Potassium 4.0 mmol/L (3.5-5.1) 08/03/24 10:35
BUN 12 mg/dl (7-17) 08/03/24 10:35
Glucose 168 mg/dl (70-99) H 08/03/24 10:35
Calcium 9.2 mg/dl (8.4-10.2) 08/03/24 10:35
LDL Cholesterol, Calc 118 mg/dl 08/03/24 06:36
Patient Allergies
cyclobenzaprine Allergy (Verified 08/03/24 00:59)
muscle aches
cyclobenzaprine HCl [From Flexeril] Allergy (Verified 08/03/24 00:59)
muscle aches
dextromethorphan Allergy (Verified 08/03/24 00:59)
SEIZURE
dextromethorphan HBr [From NyQuil] Allergy (Verified 08/03/24 00:59)
SEIZURES
doxylamine [From NyQuil] Allergy (Verified 08/03/24 00:59)
SEIZURES
guaifenesin Allergy (Verified 08/03/24 00:59)
Unknown
monosodium glutamate Allergy (Verified 08/03/24 00:59)
Unknown
morphine [Morphine] Allergy (Verified 08/03/24 00:59)
vomiting
prochlorperazine [From Compazine] Allergy (Verified 08/03/24 00:59)
hallucinations
pseudoephedrine HCl [From NyQuil] Allergy (Verified 08/03/24 00:59)
SEIZURES
Oashmou-HYD-KlJ Reductase Inhibitor [Thjfynt-Efw-Sbz Reductase Inhibitor] Allergy (Verified 08/03/24 00:59)
muscle aches
Physical Exam
-
AAOx3, speech clear, language intact
VFF, EOMI, face symmetric
grossly full strength
sensation intact to touch/temp
Medications
-
Active Medications
Generic Name Dose Route Start Last Admin
Trade Name Freq PRN Reason Stop Dose Admin
Acetaminophen 650 mg 08/03/24 03:14
Acetaminophen 650 Mg Rectal Suppository RECTAL 08/31/24 03:13
Q4HPRN PRN
STILL, mild pain, or temp >100.4F
Acetaminophen 650 mg 08/03/24 03:14 08/03/24 09:54
Acetaminophen 325 Mg Tablet PO 08/31/24 03:13 650 mg
Q4HPRN PRN Administration
STILL, mild pain, or temp >100.4F
Albuterol 1 puff 08/03/24 03:14
Albuterol Hfa [90 Mcg/Dose] Inhaler INH
R Q4HPRN PRN
shortness of breath
Protocol
Amlodipine Besylate 5 mg 08/03/24 18:00
Amlodipine 5 Mg Tablet PO 08/31/24 17:59
QPM LUCIO
Aspirin 81 mg 08/04/24 08:00
Aspirin 81 Mg (Enteric Coated) Tablet PO 09/01/24 07:59
Q48H LUCIO
Escitalopram Oxalate 2.5 mg 08/03/24 18:00
Escitalopram 5 Mg Tablet PO 08/31/24 17:59
QPM LUCIO
Famotidine 20 mg 08/03/24 08:00 08/03/24 07:24
Famotidine 20 Mg Tablet PO 08/31/24 07:59 20 mg
DAILY LUCIO Administration
Gabapentin 100 mg 08/03/24 22:00
Gabapentin 100 Mg Capsule PO 08/31/24 21:59
HS LUCIO
Metoprolol Succinate 50 mg 08/03/24 18:00
Metoprolol 50 Mg Extended Release Tablet PO 08/31/24 17:59
QPM LUCIO
Doxylamine Succinate 0 mg 08/03/24 22:00
[Unisom (Doxylamine PO 08/31/24 21:59
)] 25 Mg Tablet Po HS LUCIO
Hs
Polyethylene Glycol 8.5 grams 08/03/24 18:00
Polyethylene Glycol Powder 17 Grams Packet PO 08/31/24 17:59
QPM LUCIO
Sodium Chloride 0 flush 08/03/24 03:00
Sodium Chloride 0.9% (Flush) Syringe IV 08/31/24 02:59
PER PROTOCOL LUCIO
Warfarin Sodium 7.5 mg 08/03/24 18:00
Warfarin 7.5 Mg Tablet PO 08/08/24 17:59
QPM LUCIO
Home Medications
�Medication �Instructions �Recorded
polyethylene glycol 3350 17 gram 8.5 g PO QPM 06/11/15
oral powder packet
aspirin 81 mg tablet,delayed 81 mg PO Q48H 08/01/17
release
coenzyme Q10 100 mg capsule (Co 100 mg PO DAILY 07/04/18
Q-10)
doxylamine succinate 25 mg tablet 25 mg PO HS 07/04/18
(Unisom (doxylamine))
amlodipine 5 mg tablet 5 mg PO QPM ##30 07/06/18
escitalopram oxalate 5 mg tablet 5 mg PO QPM 03/05/22
famotidine 20 mg tablet 20 mg PO BID 03/05/22
gabapentin 100 mg capsule 100 mg PO HS 07/21/23
acetaminophen 325 mg tablet 650 mg PO Q6HPRN PRN mild pain 08/03/24
(Tylenol)
albuterol sulfate 90 mcg/actuation 2 puff inhalation R Q6HPRN PRN sob 08/03/24
aerosol inhaler
guar gum 0.5 tbsp PO QPM 08/03/24
metoprolol succinate 50 mg 50 mg PO QPM 08/03/24
tablet,extended release 24 hr
(Toprol XL)
mvphpunr-hyquvaqx-vqhs 8 mg-folic 1 tab PO DAILY 08/03/24
ac 400 mcg-vit K 10 mcg chew
tablet (Centrum Chewables)
warfarin 5 mg tablet (Jantoven) 7.5 mg (1.5 x 5 mg) PO DAILY #45 08/03/24
tabs
== END 2024-08-03 16:30 | disposition home health service (06) ==
LOC: ED 02:51
PROVIDERS: Emergency Medicine; ADMITTING PHYSICIAN Internal Medicine; ATTENDING PHYSICIAN Internal Medicine; CONSULT PHYSICIAN Psychiatry & Neurology Clinical Neurophysiology; EMERGENCY PHYSICIAN Student in an Organized Health Care Education/Training Program; FAMILY PHYSICIAN Family Medicine
DX: G45.9 Transient cerebral ischemic attack, unspecified (principal); R20.0 Anesthesia of skin; I48.0 Paroxysmal atrial fibrillation; E78.00 Pure hypercholesterolemia, unspecified; M79.7 Fibromyalgia; G93.5 Compression of brain; I67.81 Acute cerebrovascular insufficiency; R56.9 Unspecified convulsions; R29.810 Facial weakness; I10 Essential (primary) hypertension; G47.33 Obstructive sleep apnea (adult) (pediatric); M85.80 Other specified disorders of bone density and structure, unspecified site; K21.9 Gastro-esophageal reflux disease without esophagitis; Z85.42 Personal history of malignant neoplasm of other parts of uterus; Z90.49 Acquired absence of other specified parts of digestive tract; Z95.0 Presence of cardiac pacemaker; Z90.722 Acquired absence of ovaries, bilateral; Z90.710 Acquired absence of both cervix and uterus; Z86.73 Personal history of transient ischemic attack (TIA), and cerebral infarction without residual deficits; Z79.01 Long term (current) use of anticoagulants; Z60.2 Problems related to living alone; Z88.5 Allergy status to narcotic agent; Z88.8 Allergy status to other drugs, medicaments and biological substances; Z91.02 Food additives allergy status; Z79.82 Long term (current) use of aspirin; Z11.52 Encounter for screening for COVID-19
CPT/HCPCS: 70450; 80048; 80053; 80061; 85025; 85027; 85610; 87502; 87811; 92523; 92610; 95816; 99285; G0378

== ENCOUNTER → 2024-08-20 11:43 | Outpatient (REF) | payer MEDICARE, OTHER, SELFPAY ==
[2024-08-20 15:31] LABS: INR 2.05; PT 23.2 Sec (11.4-14.6)
== END ==
LOC: HWLAB 11:43
PROVIDERS: ATTENDING PHYSICIAN Internal Medicine Cardiovascular Disease; FAMILY PHYSICIAN Family Medicine
DX: I48.0 Paroxysmal atrial fibrillation (principal)
CPT/HCPCS: 36415; 85610

== ENCOUNTER → 2024-09-06 10:39 | Outpatient (REF) | payer MEDICARE, OTHER, SELFPAY ==
[2024-09-06 17:04] LABS: INR 2.02; PT 23.4 Sec (11.4-14.6)
[2024-09-06 17:07] LABS: Sodium 135 mmol/L (135-145)
== END ==
LOC: HWLAB 10:39
PROVIDERS: ATTENDING PHYSICIAN Internal Medicine Cardiovascular Disease; FAMILY PHYSICIAN Family Medicine
DX: I48.0 Paroxysmal atrial fibrillation (principal); R79.9 Abnormal finding of blood chemistry, unspecified
CPT/HCPCS: 36415; 84295; 85610

== ENCOUNTER → 2024-09-18 10:43 | Outpatient (REF) | payer MEDICARE, OTHER, SELFPAY ==
[2024-09-18 12:38] LABS: INR 1.98; PT 22.6 Sec (11.4-14.6)
== END ==
LOC: HWLAB 10:43
PROVIDERS: ATTENDING PHYSICIAN Internal Medicine Cardiovascular Disease; FAMILY PHYSICIAN Family Medicine
DX: I48.0 Paroxysmal atrial fibrillation (principal)
CPT/HCPCS: 36415; 85610

== ENCOUNTER → 2024-09-24 07:54 | Outpatient (REF) | payer MEDICARE, OTHER, SELFPAY ==
[2024-09-24 10:13] LABS: % Basophils 1.6 % (0-2); % Eosinophils 3.2 % (0-6); % Immature Granulocytes 1.1 % (0-0.5); % Lymphocytes 19.8 % (20.5-51.1); % Monocytes 9.9 % (1.7-9.3); % Neutrophils 64.4 % (42.2-75.2); Absolute Basophils 0.1 10^3/uL (0-0.2); Absolute Eosinophils 0.1 10^3/uL (0-0.7); Absolute Immature Granulocytes 0.1 10^3/uL (0-0.05); Absolute Lymphocytes 0.9 10^3/uL (1.2-3.4); Absolute Monocytes 0.4 10^3/uL (0.1-0.6); Absolute Neutrophils 2.9 10^3/uL (1.4-6.5); Hematocrit 41.5 % (37.0-47.0); Mean Corp Hgb Conc. 33.7 g/dL (33.0-37.0); Mean Corpuscular Hgb 30.4 pg (27.0-31.0); Mean Corpuscular Volume 90.2 fL (81.0-99.0); Mean Platelet Volume 10.2 fL (7.4-10.4); Nucleated Red Blood Cells % 0 %; Platelet Count 251 10^3/uL (130-400); Red Cell Dist. Width 14.2 % (11.5-14.5); White Blood Cell Count 4.4 10^3/uL (4.8-10.8)
[2024-09-24 10:24] LABS: INR 2.24; PT 24.9 Sec (11.4-14.6)
[2024-09-24 10:33] LABS: ALT (SGPT) 15 U/L (0-35); AST (SGOT) 23 U/L (14-36); Albumin 3.9 g/dl (3.5-5.0); Alkaline Phosphatase 84 U/L (38-126); Blood Urea Nitrogen 15 mg/dl (7-17); Calcium 9.3 mg/dl (8.4-10.2); Carbon Dioxide 29 mmol/L (22-30); Chloride 100 mmol/L (98-107); Glucose 102 mg/dl (70-99); Potassium 4.6 mmol/L (3.5-5.1); Sodium 135 mmol/L (135-145); Total Bilirubin 0.7 mg/dl (0.2-1.3); Total Protein 6.5 g/dl (6.3-8.2); eGFR > 60.00
== END ==
LOC: HWLAB 07:54
PROVIDERS: ATTENDING PHYSICIAN Internal Medicine Cardiovascular Disease; FAMILY PHYSICIAN Family Medicine
DX: I48.0 Paroxysmal atrial fibrillation (principal); Z95.0 Presence of cardiac pacemaker
CPT/HCPCS: 36415; 80053; 85025; 85610

== ENCOUNTER → 2024-10-02 12:31 | Outpatient (REF) | payer MEDICARE, OTHER, SELFPAY ==
[2024-10-02 17:19] LABS: INR 2.01; PT 22.9 Sec (11.4-14.6)
== END ==
LOC: HWLAB 12:31
PROVIDERS: ATTENDING PHYSICIAN Internal Medicine Cardiovascular Disease; FAMILY PHYSICIAN Family Medicine
DX: I48.0 Paroxysmal atrial fibrillation (principal)
CPT/HCPCS: 36415; 85610

== ENCOUNTER 2024-10-05 06:27 | Day surgery (SDC) | payer MEDICARE, OTHER, SELFPAY ==
[2024-10-05 06:52] VITALS: BMI 23.2
[2024-10-05 07:28] LABS: INR 1.84; PT 21.4 Sec (11.4-14.6)
[2024-10-05 09:04] VITALS: BP 158/62
[2024-10-05 09:19] VITALS: BP 164/109
--- NOTE | 2024-10-05 09:19 | ITS.CL.PACE ---
Lamination Assembler - Pacemaker Implant
Pacemaker Implant
Procedure Report:
Date of Procedure: October 05, 2024.
Procedures: Dual chamber pacemaker generator change. Pacemaker pulse generator explantation and pacemaker pulse generator implantation.
Indication: Pacemaker at [facility] from natural battery depletion. 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
Performing physician: Jose D Canseco MD, [facility].
Implant: Pacemaker Pulse Generator: Medtronic; Model# [id number]; Serial# [id number].
Explanted Pacemaker Pulse Generator (Implanted 01/26/2013): Model# [id number]; Serial# [id number].
Retained Leads (Implanted 09/27/2003):
RA: Medtronic; Model# 5076-45cm; Serial# [id number].
RV: Medtronic; Model# 5076-52cm; Serial# [id number].
Technique: A time out was performed. The procedure site was identified. The patient was anesthetized by the anesthesia service. Preoperative cefazolin was administered prior to skin incision. The patient was prepped and draped in the usual fashion.
Local anesthetic was applied to the left prepectoral subcutaneous tissue. A 3 inch incision was made over the pulse generator. The capsule was entered with Bovie cautery. The old pacemaker pulse generator was explanted. No Bovie cautery was applied
to the lead system. The leads were appropriately attached to the new device. The pocket was irrigated with antibiotic solution. Hemostasis was excellent. The device and leads were placed in the pocket. A Medtronic, TYRX Absorbable Antibacterial
Envelope was placed in the pocket, (Ref [id number]; Lot [id number]). The incision was closed in three layers with absorbable suture. Steri-strips and a silver impregnated dressing were applied. The estimated blood loss was less 1 mL. There were no
complications. No fluoroscopy. The procedure was performed on uninterrupted warfarin therapy. A pressure dressing was placed on top of the silver impregnated dressing.
Lead Analysis:
RA lead: P: 3.5 mV; Threshold: 1.25 V @ 0.4 ms; Impedance: 450 ohms.
RV lead: R: 5.5 mV; Threshold: 0.75 V @ 0.4 ms; Impedance: 440 ohms.
Final Programming: MVP (DDD <=> AAI) 55 - 120 bpm.
Conclusion: Uncomplicated Medtronic pacemaker change. The pacemaker system is MRI conditional. 5076 leads ARE MRI conditional. The pulse generator is MRI conditional.
Recommendation: Routine post pacemaker care.
cc: Nicola Thompson MD; Agustina Barkley MD.
[2024-10-05 09:34] VITALS: BP 161/85
== END 2024-10-05 09:56 | disposition home or self-care (01) ==
LOC: CATH 06:27
PROVIDERS: ATTENDING PHYSICIAN Internal Medicine Cardiovascular Disease; FAMILY PHYSICIAN Family Medicine; OTHER PHYSICIAN Internal Medicine Cardiovascular Disease
DX: Z45.010 Encounter for checking and testing of cardiac pacemaker pulse generator [battery] (principal); I49.5 Sick sinus syndrome; I48.0 Paroxysmal atrial fibrillation; Z86.73 Personal history of transient ischemic attack (TIA), and cerebral infarction without residual deficits; E78.2 Mixed hyperlipidemia; R55 Syncope and collapse; I10 Essential (primary) hypertension; I95.1 Orthostatic hypotension; Z79.82 Long term (current) use of aspirin; Z79.899 Other long term (current) drug therapy
CPT/HCPCS: 33228; 85610; C1785

== ENCOUNTER → 2024-10-10 09:47 | Outpatient (REF) | payer MEDICARE, OTHER, SELFPAY ==
[2024-10-10 13:00] LABS: INR 2.23; PT 25.1 Sec (11.4-14.6)
== END ==
LOC: HWLAB 09:47
PROVIDERS: ATTENDING PHYSICIAN Internal Medicine Cardiovascular Disease; FAMILY PHYSICIAN Family Medicine
DX: I48.0 Paroxysmal atrial fibrillation (principal)
CPT/HCPCS: 36415; 85610

== ENCOUNTER → 2024-10-18 11:32 | Outpatient (REF) | payer MEDICARE, OTHER, SELFPAY ==
[2024-10-18 15:44] LABS: INR 2.28; PT 25.6 Sec (11.4-14.6)
== END ==
LOC: HWLAB 11:32
PROVIDERS: ATTENDING PHYSICIAN Internal Medicine Cardiovascular Disease; FAMILY PHYSICIAN Family Medicine
DX: I48.0 Paroxysmal atrial fibrillation (principal)
CPT/HCPCS: 36415; 85610

== ENCOUNTER → 2024-10-19 10:13 | Outpatient (REF) | payer MEDICARE, OTHER, SELFPAY | LOC: HWRAD 10:13 | PROVIDERS: ATTENDING PHYSICIAN Internal Medicine Cardiovascular Disease; FAMILY PHYSICIAN Family Medicine | DX: G45.9 Transient cerebral ischemic attack, unspecified (principal) | CPT/HCPCS: 93880 ==

== ENCOUNTER → 2024-10-25 11:47 | Outpatient (REF) | payer MEDICARE, OTHER, SELFPAY ==
[2024-10-25 16:00] LABS: INR 2.71; PT 29.2 Sec (11.4-14.6)
== END ==
LOC: HWLAB 11:47
PROVIDERS: ATTENDING PHYSICIAN Internal Medicine Cardiovascular Disease; FAMILY PHYSICIAN Family Medicine
DX: I48.0 Paroxysmal atrial fibrillation (principal)
CPT/HCPCS: 36415; 85610

== ENCOUNTER → 2024-11-01 10:05 | Outpatient (REF) | payer MEDICARE, OTHER, SELFPAY ==
[2024-11-01 12:25] LABS: INR 2.26; PT 25.4 Sec (11.4-14.6)
== END ==
LOC: HWLAB 10:05
PROVIDERS: ATTENDING PHYSICIAN Internal Medicine Cardiovascular Disease; FAMILY PHYSICIAN Family Medicine
DX: I48.0 Paroxysmal atrial fibrillation (principal)
CPT/HCPCS: 36415; 85610

== ENCOUNTER → 2024-11-22 13:22 | Outpatient (REF) | payer MEDICARE, OTHER, SELFPAY | LOC: MRI 13:22 | PROVIDERS: ATTENDING PHYSICIAN Psychiatry & Neurology Neurology; FAMILY PHYSICIAN Family Medicine | DX: I63.50 Cerebral infarction due to unspecified occlusion or stenosis of unspecified cerebral artery (principal) | CPT/HCPCS: 70551; 71046; 76014; 76015 ==

== ENCOUNTER → 2024-11-29 10:38 | Outpatient (REF) | payer MEDICARE, OTHER, SELFPAY ==
[2024-11-29 15:26] LABS: INR 2.32; PT 25.9 Sec (11.4-14.6)
== END ==
LOC: HWLAB 10:38
PROVIDERS: ATTENDING PHYSICIAN Internal Medicine Cardiovascular Disease; FAMILY PHYSICIAN Family Medicine
DX: I48.0 Paroxysmal atrial fibrillation (principal)
CPT/HCPCS: 36415; 85610

== ENCOUNTER → 2024-12-27 11:04 | Outpatient (REF) | payer MEDICARE, OTHER, SELFPAY ==
[2024-12-27 15:40] LABS: INR 2.86; PT 30.3 Sec (11.4-14.6)
== END ==
LOC: HWLAB 11:04
PROVIDERS: ATTENDING PHYSICIAN Internal Medicine Cardiovascular Disease; FAMILY PHYSICIAN Family Medicine
DX: I48.0 Paroxysmal atrial fibrillation (principal)
CPT/HCPCS: 36415; 85610

== ENCOUNTER → 2025-01-24 11:18 | Outpatient (REF) | payer MEDICARE, OTHER, SELFPAY ==
[2025-01-24 15:46] LABS: INR 2.92; PT 30.9 Sec (11.4-14.6)
== END ==
LOC: HWLAB 11:18
PROVIDERS: ATTENDING PHYSICIAN Internal Medicine Cardiovascular Disease; FAMILY PHYSICIAN Family Medicine
DX: I48.0 Paroxysmal atrial fibrillation (principal)
CPT/HCPCS: 36415; 85610

== ENCOUNTER → 2025-02-28 10:44 | Outpatient (REF) | payer MEDICARE, OTHER, SELFPAY ==
[2025-02-28 11:34] LABS: INR 3.78; PT 37.5 Sec (11.4-14.6)
[2025-02-28 11:54] LABS: Blood Urea Nitrogen 16 mg/dl (7-17)
== END ==
LOC: REG 10:44
PROVIDERS: ATTENDING PHYSICIAN Internal Medicine Cardiovascular Disease; FAMILY PHYSICIAN Family Medicine; REFERRING PHYSICIAN Internal Medicine
DX: I48.0 Paroxysmal atrial fibrillation (principal); K55.9 Vascular disorder of intestine, unspecified
CPT/HCPCS: 36415; 82565; 84520; 85610

== ENCOUNTER → 2025-03-04 10:37 | Outpatient (REF) | payer MEDICARE, OTHER, SELFPAY ==
[2025-03-04 12:03] LABS: INR 2.88; PT 30.1 Sec (11.4-14.6)
== END ==
LOC: HWLAB 10:37
PROVIDERS: ATTENDING PHYSICIAN Internal Medicine Cardiovascular Disease; FAMILY PHYSICIAN Family Medicine
DX: I48.0 Paroxysmal atrial fibrillation (principal)
CPT/HCPCS: 36415; 85610

== ENCOUNTER → 2025-03-07 11:17 | Outpatient (REF) | payer MEDICARE, OTHER, SELFPAY | LOC: RAD 11:17 | PROVIDERS: ATTENDING PHYSICIAN Internal Medicine; FAMILY PHYSICIAN Family Medicine | DX: K55.9 Vascular disorder of intestine, unspecified (principal); R10.9 Unspecified abdominal pain | CPT/HCPCS: 74177; Q9967 ==

== ENCOUNTER → 2025-03-11 11:42 | Outpatient (REF) | payer MEDICARE, OTHER, SELFPAY ==
[2025-03-11 15:47] LABS: INR 2.63; PT 28.1 Sec (11.4-14.6)
== END ==
LOC: HWLAB 11:42
PROVIDERS: ATTENDING PHYSICIAN Obstetrics & Gynecology; FAMILY PHYSICIAN Family Medicine; REFERRING PHYSICIAN Internal Medicine
DX: I48.0 Paroxysmal atrial fibrillation (principal); K86.89 Other specified diseases of pancreas; K86.2 Cyst of pancreas
CPT/HCPCS: 82653; 85610

== ENCOUNTER → 2025-03-18 11:00 | Outpatient (REF) | payer MEDICARE, OTHER, SELFPAY ==
[2025-03-18 16:27] LABS: INR 2.40; PT 26.2 Sec (11.4-14.6)
== END ==
LOC: HWLAB 11:00
PROVIDERS: ATTENDING PHYSICIAN Obstetrics & Gynecology; FAMILY PHYSICIAN Family Medicine
DX: I48.0 Paroxysmal atrial fibrillation (principal)
CPT/HCPCS: 36415; 85610

== ENCOUNTER → 2025-03-28 06:11 | Outpatient (REF) | payer MEDICARE, OTHER, SELFPAY ==
[2025-03-28 10:12] LABS: INR 2.65; PT 28.7 Sec (11.4-14.6)
[2025-03-28 10:28] LABS: Hematocrit 40.9 % (37.0-47.0); Hemoglobin 13.3 g/dL (12.0-16.0); Mean Corp Hgb Conc. 32.5 g/dL (33.0-37.0); Mean Corpuscular Volume 90.9 fL (81.0-99.0); Nucleated Red Blood Cells % 0 %; Platelet Count 273 10^3/uL (130-400); Red Cell Dist. Width 14.5 % (11.5-14.5)
[2025-03-28 12:22] LABS: Albumin 4.3 g/dl (3.5-5.0); Blood Urea Nitrogen 15 mg/dl (7-17); Calcium 9.0 mg/dl (8.4-10.2); Carbon Dioxide 27 mmol/L (22-30); Chloride 100 mmol/L (98-107); Glucose 105 mg/dl (70-99); Potassium 4.4 mmol/L (3.5-5.1); Sodium 135 mmol/L (135-145); eGFR > 60.00
== END ==
LOC: HWLAB 06:11
PROVIDERS: ATTENDING PHYSICIAN Internal Medicine Cardiovascular Disease; FAMILY PHYSICIAN Family Medicine
DX: I48.0 Paroxysmal atrial fibrillation (principal); R06.02 Shortness of breath; Z79.01 Long term (current) use of anticoagulants
CPT/HCPCS: 36415; 80069; 85025; 85610

== ENCOUNTER → 2025-04-01 08:29 | Outpatient (REF) | payer MEDICARE, OTHER, SELFPAY | LOC: RAD 08:29 | PROVIDERS: ATTENDING PHYSICIAN Family Medicine; OTHER PHYSICIAN Internal Medicine | DX: R10.13 Epigastric pain (principal) | CPT/HCPCS: 74246 ==

== ENCOUNTER → 2025-04-04 11:03 | Outpatient (REF) | payer MEDICARE, OTHER, SELFPAY ==
[2025-04-04 13:06] LABS: INR 2.70; PT 29.1 Sec (11.4-14.6)
== END ==
LOC: HWLAB 11:03
PROVIDERS: ATTENDING PHYSICIAN Internal Medicine Cardiovascular Disease; FAMILY PHYSICIAN Family Medicine
DX: I48.0 Paroxysmal atrial fibrillation (principal)
CPT/HCPCS: 36415; 85610

== ENCOUNTER 2025-04-21 12:54 | Emergency (ER) | payer MEDICARE, OTHER, SELFPAY ==
[2025-04-21 13:03] VITALS: BP 163/85
[2025-04-21 13:49] VITALS: BP 157/81
[2025-04-21 13:53] LABS: Hematocrit 43.3 % (37.0-47.0); Hemoglobin 14.7 g/dL (12.0-16.0); Mean Corp Hgb Conc. 33.9 g/dL (33.0-37.0); Mean Corpuscular Volume 85.9 fL (81.0-99.0); Nucleated Red Blood Cells % 0 %; Platelet Count 254 10^3/uL (130-400); Red Cell Dist. Width 14.2 % (11.5-14.5)
[2025-04-21 14:00] VITALS: BP 176/81
[2025-04-21 14:06] LABS: ALT (SGPT) 23 U/L (0-35); AST (SGOT) 35 U/L (14-36); Albumin 5.2 g/dl (3.5-5.0); Alkaline Phosphatase 120 U/L (38-126); Blood Urea Nitrogen 17 mg/dl (7-17); Calcium 9.9 mg/dl (8.4-10.2); Carbon Dioxide 26 mmol/L (22-30); Chloride 98 mmol/L (98-107); Glucose 100 mg/dl (70-99); Potassium 5.1 mmol/L (3.5-5.1); Sodium 133 mmol/L (135-145); Total Protein 8.7 g/dl (6.3-8.2); eGFR > 60.00
[2025-04-21 14:17] LABS: Troponin I 0.013 ng/ml
--- NOTE | 2025-04-21 14:46 | ED.GENMED ---
History of Present Illness
General
Chief Complaint: Breathing Problem
Source: patient
Time Seen by Provider: 04/21/25 13:59
History of Present Illness
History of Present Illness:
89-year-old female with past medical history of previous CVA, atrial fibrillation, hypertension, status post pacemaker placement, previous GI bleeding, previous uterine cancer presenting to the emergency department for evaluation after she felt
short of breath after she had been changing the furnace filters and bringing up some Radha decorations noting that all of a sudden she started to feel short of breath and panicky, contacted EMS who brought patient to the ER and states since
getting to the ER has had full resolution of symptoms and feels well otherwise. She states she never had any pain associated with this, palpitations, cough or upper respiratory like symptoms, or any other concerns. Patient also notes that she is
currently dealing with the recent passing of her oldest son and is scheduled to have a this coming Tuesday.
Past History
Past History
ED Past Medical History: Arrthythmia (Paroxysmal atrial fibrillation), Cancer (Uterine malignancy), CVA (Brainstem 2019), GERD, HTN, Hypercholesterolemia, Seizures, Other (Ischemic colitis, vaginal mass, diverticulitis, fibromyalgia, osteopenia,
migraine, orthostatic hypotension), Other (Left Flores's palsy, left meralgia paresthetica, prior osteomyelitis, sleep apnea) and Other (Anemia,)
ED Past Surgical History: Cardiac (Pacemaker placement), Cholecystectomy, Gynecological (Hysterectomy with total abdominal BSO) and Orthopedic (Right rotator cuff repair, right knee arthroscopy)
Social History
Tobacco: Non-smoker
Alcohol: None
Drug: None
Personal:
Living: alone
Employment: Retired
Family History
Family History: Other (Reviewed and non-contributory)
Review of Systems
Review of Systems
All Other Systems: ROS reviewed and negative except as documented in HPI and ROS
Phy Exam
Physical Exam
Physical Exam:
GENERAL: Alert , in no apparent distress, smiling, pleasant, speaking on phone to family members
HEAD: Normocephalic atraumatic
EYE: conjunctiva clear
NECK: Supple
ENT: o/p clr, mmm.
CARDIAC: Regular rate and rhythm
LUNGS: Clear breath sounds bilaterally, no acute respiratory distress, no wheezes/rales/rhonchi
NEUROLOGICAL: Alert and oriented
SKIN: Warm and dry, skin intact.
MUSCULOSKELETAL: well perfused.
PSYCH: Normal and appropriate interaction.
Scores
Heart Failure Risk
Heart Failure Risk Score: Not Applicable
Heart Score for Chest Pain Patients
STEMI patient?: Not applicable
Withdrawal Assessment of Alcohol
Withdrawal Assessment Completed?: Not applicable
Course
Orders/Labs/Results
Orders:
Orders
04/21/25 12:55
ECG [Electrocardiogram (*1)] Urgent
Reason for Study: Atrial Fibrillation
04/21/25 12:56
EKG- Treatment ONCE
04/21/25 13:07
CR Chest - 2 Views Urgent
Comment:
Reason For Exam: cough
04/21/25 13:29
Complete Blood Count/With Diff Urgent
Comprehensive Metabolic Panel Urgent
Troponin I Urgent
04/21/25 14:52
Interrogate Pacemaker- Treatment ONCE
04/21/25 15:23
EKG [Electrocardiogram (*1)] Urgent
Reason for Study: Chest Pain
EKG- Treatment ONCE
04/21/25 15:57
Troponin I Urgent
Abnormal Lab Results
04/21/25
13:29
Absolute Lymphs (auto) 1.0 L 10^3/uL
(1.2-3.4)
Lymphocytes % 14.8 L %
(20.5-51.1)
Sodium 133 L mmol/L
(135-145)
Glucose 100 H mg/dl
(70-99)
Total Protein 8.7 H g/dl
(6.3-8.2)
Albumin 5.2 H g/dl
(3.5-5.0)
04/21/25 13:29
04/21/25 13:29
Vital Signs
Initial and Last Documented VS:
Initial Vital Signs
Temp Pulse Resp BP Pulse Ox
98.4 F 69 18 163/85 97
04/21/25 13:03 04/21/25 13:03 04/21/25 13:03 04/21/25 13:03 04/21/25 13:03
Last Documented Vital Signs
Temp Pulse Resp BP Pulse Ox
98.4 F 63 12 182/72 98
04/21/25 13:03 04/21/25 16:30 04/21/25 16:30 04/21/25 16:01 04/21/25 16:30
MDM/Problems Addressed
Differential Diagnosis Includes:
Arrhythmia
Valvular dysfunction
ACS
Pneumonia
PE
PTX
Anxiety/Stress induced
MDM/Problems Addressed:
89-year-old female presenting to the ER for shortness of breath that developed at home earlier this afternoon, contacted EMS as she felt she needed to be on oxygen. She notes that she is feeling significantly better and asymptomatic at time of my
exam. She is overall very well-appearing and in no acute distress. Hemodynamically stable. Labs and EKG initially on arrival which are all reassuring. Will repeat troponin, will interrogate pacemaker, will ambulate patient throughout the ER. It
is certainly possible some of her symptoms could be stress-induced/anxiety related given she notes the recent passing of her son and scheduled for a this coming week although given her cardiac history will further work this up.
Chronic conditions affecting care: Arrhythmia
*Radiology
Radiology exam reviewed: radiology read reviewed
*Pulse Oximetry
SaO2: 98
Oxygen Mode of Delivery: Room air
Patient hypoxic: no
*EKG
Heart Rate: 71
Rate: normal
Rhythm: sinus
Ischemia: no ischemia
*Professional Development Instructor Interpretation
Rate: normal
Heart Rate: 75
Rhythm: sinus
*Critical Care Note
Total Time (30-74mins, 75-104mins- exclusive of procedures): Not Applicable
Data Reviewed
Review of Other/Old Records Reveals: Labs and Records
Patient Management
Escalation/DeEscalation of care consider admission/obs:
Repeat troponin is negative. Patient's pacemaker interrogation without any evidence for arrhythmia. Patient continues to feel well, ambulating throughout the ER with no acute distress. She ultimately wishes to be discharged home. Recommended
return precautions and outpatient follow-up. Patient is agreeable with this plan.
ED Attending Note
-
Portions of this chart may have been created with voice recognition software.� Occasional wrong word or��sound alike� substitutions may have occurred due to the inherent limitations of voice recognition software.
Discharge Plan
Departure
Patient Disposition: Home (Routine Discharge)
Date of Disposition: 04/21/25
Time of Disposition: 16:33
Patient with high blood pressure during this ER visit?: No
Discharge Problem:
Shortness of breath
Instructions: Shortness of Breath (Dyspnea) (DC)
Prescriptions:
No Action
polyethylene glycol 3350 17 GRAMS powder in packet
8.5 g PO QPM
aspirin 81 MG tablet,delayed release (DR/EC)
81 mg PO Q48H
coenzyme Q10 [Co Q-10] 100 MG capsule
100 mg PO DAILY
Unisom (doxylamine) 25 MG tablet
25 mg PO HS
amlodipine 5 MG tablet
5 mg PO QPM Qty: 30 0RF
famotidine 20 mg Tablet
20 mg PO BID
escitalopram oxalate 5 mg Tablet
5 mg PO QPM
gabapentin 100 mg capsule
100 mg PO QPM
warfarin 5 mg Tablet
7.5 mg PO SUTUWETHFRSA
warfarin 5 mg Tablet
5 mg PO MO
cephalexin 500 mg capsule
500 mg PO Q8H Qty: 3 0RF
Rx Instructions:
First dose due at 2pm today
acetaminophen [Tylenol] 325 mg Tablet
650 mg PO Q6HPRN PRN (Reason: mild pain)
metoprolol succinate [Toprol XL] 50 mg Tablet Extended Release 24 Hr
50 mg PO QPM
guar gum Packet
0.5 tbsp PO QPM
albuterol sulfate 90 mcg/actuation Hfa Aerosol Inhaler
2 puff INHALATION R Q6HPRN PRN (Reason: sob)
Centrum Chewables 8 mg-400 mcg- 10 mcg Tablet,Chewable
1 tab PO DAILY
Referrals:
Nicola Thompson DO [Family Provider, Family Practice]
Interventions
Interventions:
*Risk Screen - Suicide Last Done: 04/21/25 13:03
*General Assessment Last Done: 04/21/25 13:03
*Neglect/Abuse Screening Last Done: 04/21/25 13:03
*ED- Fall Risk Assessment Last Done: 04/21/25 13:51
*ED COVID-19 Vaccine History Last Done: 04/21/25 13:42
*ED Influenza Vaccine History Last Done: 04/21/25 13:42
*Nursing Disposition Last Done: 04/21/25 16:40
ED- Cardiac Assessment Last Done: 04/21/25 13:51
ED- Pulmonary Assessment Last Done: 04/21/25 13:51
Discharge Date and Time
Discharge Date/Time: 04/21/25 16:41
Print Language: SLOVAK
[2025-04-21 15:01] VITALS: BP 125/110
[2025-04-21 16:01] VITALS: BP 182/72
[2025-04-21 16:30] LABS: Troponin I < 0.012 ng/ml
== END 2025-04-21 16:41 | disposition home or self-care (01) ==
LOC: EMR 12:54
PROVIDERS: Physician Assistant Medical; EMERGENCY PHYSICIAN Emergency Medicine; FAMILY PHYSICIAN Family Medicine
DX: R06.02 Shortness of breath (principal); I48.0 Paroxysmal atrial fibrillation; I10 Essential (primary) hypertension; E78.00 Pure hypercholesterolemia, unspecified; G47.30 Sleep apnea, unspecified; K21.9 Gastro-esophageal reflux disease without esophagitis; M79.7 Fibromyalgia; M85.80 Other specified disorders of bone density and structure, unspecified site; Z63.4 Disappearance and death of family member; Z79.82 Long term (current) use of aspirin; Z86.73 Personal history of transient ischemic attack (TIA), and cerebral infarction without residual deficits; Z85.42 Personal history of malignant neoplasm of other parts of uterus; Z90.722 Acquired absence of ovaries, bilateral; Z90.710 Acquired absence of both cervix and uterus
CPT/HCPCS: 99284; 93288; 71046; 80053; 84484; 85025; 93005

== ENCOUNTER → 2025-05-08 10:23 | Outpatient (REF) | payer MEDICARE, OTHER, SELFPAY ==
[2025-05-08 11:44] LABS: INR 2.49; PT 26.5 Sec (11.4-14.6)
== END ==
LOC: REG 10:23
PROVIDERS: ATTENDING PHYSICIAN Internal Medicine Cardiovascular Disease; FAMILY PHYSICIAN Family Medicine
DX: I48.0 Paroxysmal atrial fibrillation (principal)
CPT/HCPCS: 36415; 85610

== ENCOUNTER → 2025-05-14 11:46 | Outpatient (REF) | payer MEDICARE, OTHER, SELFPAY | LOC: HWRCS 11:46 | PROVIDERS: ATTENDING PHYSICIAN Internal Medicine Cardiovascular Disease; FAMILY PHYSICIAN Family Medicine | DX: R06.00 Dyspnea, unspecified (principal); I48.0 Paroxysmal atrial fibrillation | CPT/HCPCS: 78452; 93017; A9500; J2785 ==